=== PATIENT | male | born 1995 | race Two or more races ===

== ENCOUNTER 2025-06-13 19:38 | Emergency (ER) | payer MEDICAID, SELFPAY ==
[2025-06-13 19:39] VITALS: BP 112/71; PULSE 84; RESP 17; TEMP 36.4; O2SAT 97
[2025-06-13 19:55] VITALS: PULSE 80; RESP 20; O2SAT 98
[2025-06-13 19:58] VITALS: BMI 25.7
[2025-06-13 19:59] VITALS: BP 115/76; PULSE 88; RESP 20; O2SAT 97
--- NOTE | 2025-06-13 20:02 | XR_ITS ---
Examination: CT brain head without contrast. 2-D sagittal coronal reconstructions Date and time of exam: June 13, 2025, 0857 hours INDICATIONS: Multiple seizures today CTDI: vol (mGy): 47.7 DLP: (mGycm): 931 Technique: Multiple CT axial sections of the brain have been obtained, 5 mm slice thickness. Contrast has not been administered. 2-D sagittal, coronal reconstructions have been obtained Low dose protocols were performed. One or more of the following dose reduction techniques were used; automated exposure control, adjustment of the mA and/or KV according to patient size, use of iterative reconstruction technique. Findings: No significant ventricular enlargement. Intra-axial or extra-axial hemorrhage density is not seen. No mass effect or midline shift Basal cisterns are not remarkable. Fourth ventricle is midline. Cranial vault intact. Bilateral otitis externa Impression: Negative for acute hemorrhage, mass effect or midline shift Consider elective brain MRI follow-up, pre and post contrast, seizure protocol
--- NOTE | 2025-06-13 20:02 | PD.EDSEIZ ---
ED Seizures RME/HPI General Chief Complaint: Seizure Stated Complaint: SEIZURES Arrival date/time: 06/13/25 19:38 RME / HPI RME / HPI Narrative: 30-year-old male who drinks alcohol on a regular basis had a seizure today in front of family. He also had 2 seizures that were [place] and type in front of the paramedics. Patient received 4 mg of midazolam intranasally. Blood sugar was 190. No recent history of trauma. No significant past medical history. No history of seizure. Patient has no specific complaint at this time and is alert and oriented at the time of my exam. Related Data Allergies Allergy/AdvReac Type Severity Reaction Status Date / Time No Known Allergies Allergy Verified 06/13/25 20:34 Review of Systems Review of Systems Systems Reviewed: All systems reviewed, normal except as documented ED Exam Narrative Physical exam: Eyes show erythematous conjunctiva with pupils equal round reactive to light, neck shows no nuchal rigidity, heart regular rate and rhythm, lungs clear to auscultation equal bilaterally, abdomen soft nontender, neurologic exam shows Glascow coma scale 15 without focal neurologic deficit, head is normocephalic atraumatic Course Quality Measures none Orders Category Date Time Status CT head/brain wo con Stat Exams 06/13/25 20:02 Completed Alcohol, Blood Medical Stat Lab 06/13/25 19:59 Completed BMP [Basic Metabolic Panel] Stat Lab 06/13/25 19:59 Completed CBC Stat Lab 06/13/25 19:59 Completed Drug Screen,Urine Stat Lab 06/13/25 20:15 Completed LORazepam [Ativan Inj] Med 06/13/25 20:00 Discontinued 1 mg IVP X1 ONE levETIRAcetam INJ [Keppra Inj] Med 06/13/25 20:01 Discontinued 1,000 mg IVP X1 ONE Vital Signs Vital signs: Vital Signs Temperature 97.5 F 06/13/25 19:39 Pulse Rate 84 06/13/25 19:39 Respiratory Rate 17 06/13/25 19:39 Blood Pressure 112/71 06/13/25 19:39 Pulse Oximetry (%) 97 06/13/25 19:39 Oxygen Delivery Method Room Air 06/13/25 19:39 Seizure MDM Narrative MDM Narrative:: Patient drinks alcohol on a daily basis. Alcohol level is 266. Urinary tox screen is positive for benzodiazepines however the patient did receive Versed by paramedics. Head CT was negative. Sodium is 146. Patient received Ativan 1 mg IV here in the emergency room to guard against further seizure. Patient also received Keppra 1000 mg IV. At this point I believe the patient had an alcohol withdrawal seizure due to the fact that the patient states that he has been drinking less alcohol over the last 1 to 2 days than normal. I do not believe the patient needs antiepileptic medication to go home on at this time. Patient had no further seizure activity here in the emergency room. Patient data External records reviewed:: Other (specify) Clinical information provided by:: none Social determinants that could affect healthcare access:: none Patient has the following chronic illnesses:: None How is presenting disease/condition affected by chronic disease/condition?: no chronic disease Evaluation data The following diagnostics were reviewed and interpreted by me:: other (specify) Lab and/or radiology exams considered but not ordered:: None Interpretation Summary: None Medications / Prescriptions Medications or Prescriptions considered but not ordered:: None Medication administrations:: Medication Administration History Discontinued Medications Levetiracetam (Levetiracetam Inj 100 Mg/Ml Vial 5ml) 1,000 mg IVP X1 ONE Stop: 06/13/25 20:02 Last Admin: 06/13/25 20:45 Dose: 1,000 mg Documented By: SR Lorazepam (Lorazepam 2 Mg/Ml Vial) 1 mg IVP X1 ONE Stop: 06/13/25 20:01 Last Admin: 06/13/25 20:45 Dose: 1 mg Documented By: SR None Consultations Consultation(s) initiated? (list below): No Diagnosis Seizure Differential Diagnosis: other Most likely diagnosis given after review of the tests above:: none Admission Indicated Admission indicated?: not indicated Admission Request Was there a request for admission?: No Disposition Plan Disposition Plan: Discharge Discharge Attestation Discharge Attestation: The patient and all family members were given an opportunity to ask questions and understood the discharge instructions. Discharge instructions specifically effects, indications for sooner follow up or return to the emergency department, and the expected course of current diagnosis. Patient condition: Stable Discharge Plan Plan Patient Disposition: HOME (Self Care) Prescriptions/Referrals Referrals: No Primary/Family,Physician [Primary Care Provider] - In 1 week Problem List Clinical Impression: Alcohol withdrawal seizure Patient/Caregiver Discharge Instructions Education Materials: Alcohol Withdrawal: What to Expect, ED Alcohol Withdrawal Seizure Additional Instructions: Slowly decrease your consumption of alcohol. Return to ER as needed or for any further seizure activity. Print Language: Upper Sorbian Stand Alone Forms: Deanna Award Info., Patient Portal Info Letter
--- NOTE | 2025-06-13 20:06 | PC.NURSE ---
Patient came in to the ED from home via ambulance. Patient had a witnessed seizure at home and two seizures witnessed by EMS on scene. Patient has a Hx of seizures, patient was drinking alcohol today (beer). Patient is awake, alert and oriented to person and place, patient denies pain, VS within regular limits. Patient's family at the lobby waiting to come in. Seizure precautions initiated.
[2025-06-13] MEDS: levETIRAcetam INJ 100 MG/ML VIAL 5ML 1000 MG IVP (20:45)
[2025-06-13] MEDS: LORazepam 2 MG/ML VIAL 1 MG IVP (20:45)
[2025-06-13 21:06] LABS: Basophils # (Auto) 0.0 Thou/mm3 (0.0-0.2); Basophils % (Auto) 1 % (0-2.5); Eosinophils # (Auto) 0.1 Thou/mm3 (0.0-0.5); Eosinophils % (Auto) 3 % (0-10); Hematocrit 42.5 % (41.0-53.0); Hemoglobin 14.8 g/dL (13.5-16.0); Immature Granulocytes Auto 0.01 Thou/mm3 (0.00-0.00); Lymphocytes # (Auto) 1.7 Thou/mm3 (1.0-4.8); Lymphocytes % (Auto) 39 % (10-50); Mean Corpuscular HGB Conc 34.8 g/dl (31.0-37.0); Mean Corpuscular Hemoglobin 30.6 pg (25.0-35.0); Mean Corpuscular Volume 88 fL (80-100); Monocytes # (Auto) 0.5 Thou/mm3 (0.0-0.8); Monocytes % (Auto) 11 % (0-12); Neutrophils # (Auto) 2.1 Thou/mm3 (1.8-7.7); Neutrophils % (Auto) 47 % (37-80); Nucleated Red Blood Cell # 0.00 Thou/mm3 (0.00-0.00); Nucleated Red Blood Cell % 0 /100 WBC (0); Platelet Count 272 Thou/mm3 (140-440); RDW Standard Deviation 42.7 fL (35.1-43.9); Red Blood Count 4.83 Miln/mm3 (4.50-5.90); White Blood Count 4.5 Thou/mm3 (3.8-10.6)
[2025-06-13 21:24] LABS: Amphetamine/Methamp Scrn,U Negative (Negative); Barbiturate Screen,Urine Negative (Negative); Benzodiazepines Screen,Urine Positive (Negative); Benzoylecgonine Screen, Ur Negative (Negative); Fentanyl Screen,Urine Negative (Negative); Opiate Screen,Urine Negative (Negative); THC Screen,Urine Negative (Negative)
[2025-06-13 21:28] LABS: Alcohol, Blood Medical 266.6 mg/dL (0-10.0); Anion Gap 14 (7-16); BUN/Creatinine Ratio 8 Ratio (12-20); Blood Urea Nitrogen 6 mg/dL (9-23); Calcium 9.1 mg/dL (8.3-10.6); Carbon Dioxide 22.8 mMol/L (20.0-31.0); Chloride 109 mMol/L (98-107); Creatinine (Component) 0.8 mg/dL (0.6-1.3); Estimated Creatinine Clearance 109.7 mL/min (>60); Glucose 102 mg/dL (74-106); Osmolality,Calculated 288 (275-295); Potassium 3.4 mMol/L (3.4-5.1); Sodium 146 mMol/L (136-145); eGFR > 60 See Note
[2025-06-13 23:01] VITALS: BP 111/63; PULSE 116; RESP 18; TEMP 36.9; O2SAT 99
[2025-06-14 00:35] VITALS: BP 99/58; PULSE 85; RESP 16; TEMP 36.6; O2SAT 95
== END 2025-06-14 00:41 | disposition home or self-care (01) ==
PROVIDERS: Emergency Provider Emergency Medicine
DX: R56.9 Unspecified convulsions (principal); F10.239 Alcohol dependence with withdrawal, unspecified; Y90.8 Blood alcohol level of 240 mg/100 ml or more
CPT/HCPCS: 36415; 70450; 80048; 80307; 80320; 85025; 96374; 96375; 99283; J1953; J2060; G0480